=== PATIENT | female | born 1995 | race Caucasian/White ===

== ENCOUNTER 2016-06-13 17:01 | Outpatient (CLI) | payer OTHER ==
[~2016-06-13] VITALS: Ht 160 cm; Wt 83.6 kg
[2016-06-13 17:15] VITALS: BP 122/76; PULSE 115; TEMP 98.9
[2016-06-13] MEDS ORDERED: PRENATAL MVI (17:27)
== END 2016-06-13 18:30 | disposition home or self-care (01) ==
LOC: LDRO 17:01 → LDR 17:10 → LDRO 18:30
DX: O47.03 False labor before 37 completed weeks of gestation, third trimester (principal); Z3A.35 35 weeks gestation of pregnancy
CPT/HCPCS: OP

== ENCOUNTER 2016-07-13 07:09 | Inpatient (IN) | payer OTHER ==
[~2016-07-13] VITALS: Ht 160 cm; Wt 85.5 kg
[2016-07-13] VITALS (54 sets, daily range): BP systolic 106–145; BP diastolic 28–89; PULSE 75–109; TEMP 98.1–98.7
[~2016-07-13 07:09] MED LIST: PRENATAL MVI
[2016-07-13 08:00] LABS: BASO % 0.5 % (0.0-2.0); EOS # 0.1 (0.0-0.7); EOS % 1.6 % (0-4.0); GRAN # 5.5 (1.4-6.5); GRAN % 63.4 % (42.2-75.2); HEMOGLOBIN 12.6 g/dl (12.5-16.0); LYMPH # 2.3 (1.2-3.4); LYMPH % 26.4 % (20.0-51.0); MEAN CELL VOLUME 83 fl (80.0-100.0); MEAN CORPUSCULAR HEMOGLOBIN 29 pg (27.0-31.0); MEAN CORPUSCULAR HGB CONC 35 g/dl (33.0-37.0); MEAN PLATELET VOLUME 10.8 fl (7.4-10.4); MONO # 0.7 (0.1-0.6); MONO % 7.6 % (1.7-9.3); PLATELET COUNT 254 K/mm3 (130-400); RED BLOOD COUNT 4.34 M/mm3 (4.10-5.30); REDCELL DISTRIBUTION WIDTH-CV 13.4 % (11.5-14.5); WHITE BLOOD COUNT 8.7 K/mm3 (4.8-10.8)
[2016-07-13 08:05] LABS: HEMATOCRIT 36.2 % (37.0-47.0)
[2016-07-14] VITALS (12 sets, daily range): BP systolic 105–139; BP diastolic 54–83; PULSE 90–127; TEMP 97.7–98.8
[2016-07-14] MEDS ORDERED: IBU600 MG PO (09:53)
[2016-07-14] MEDS ORDERED: PERCOCET 325 MG1 TA2 PO (09:53)
[2016-07-15 07:20] VITALS: BP 121/44; PULSE 106; TEMP 98.3
[2016-07-15 16:31] VITALS: BP 127/74; PULSE 104; TEMP 98
[2016-07-15 20:00] VITALS: BP 118/73; PULSE 77; TEMP 98.9
[2016-07-16 08:00] VITALS: BP 111/73; PULSE 89; TEMP 97.9
== END 2016-07-16 10:15 | disposition home or self-care (01) | DRG 775 ==
LOC: OB 07:09 → LDR 07:09 → OB 07-14 04:30
PROVIDERS: Obstetrics & Gynecology
PROC: 10E0XZZ Delivery of Products of Conception, External Approach (ICD-10-PCS; principal; 2016-07-14)
PROC: 3E033VJ Introduction of Other Hormone into Peripheral Vein, Percutaneous Approach (ICD-10-PCS; 2016-07-14)
PROC: 0HQ9XZZ Repair Perineum Skin, External Approach (ICD-10-PCS; 2016-07-14)
DX: O99.824 Streptococcus B carrier state complicating childbirth (principal); O70.0 First degree perineal laceration during delivery; Z3A.39 39 weeks gestation of pregnancy; Z37.0 Single live birth
CPT/HCPCS: J2540; J2590; J7120